=== PATIENT | male | born 1995 | race Caucasian/White ===

== ENCOUNTER 2018-07-19 16:33 | Emergency (ER) | payer BC ==
[~2018-07-19] VITALS: Ht 185.4 cm; Wt 81.6 kg
[2018-07-19] MEDS ORDERED: LORAZEPAM 1 MG TABLET ONE (17:18)
--- NOTE | 2018-07-19 17:23 | NUR ---
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
[2018-07-19 17:24] VITALS: BP 138/87
[2018-07-19] MEDS ORDERED: LORAZEPAM 1 MG TABLET PO ONE (17:30)
--- NOTE | 2018-07-19 17:40 | NUR ---
For discharge-ACI given states understanding Home ambulatory with parent
== END 2018-07-19 17:40 | disposition home or self-care (01) ==
LOC: ER 16:35
DX: F41.9 Anxiety disorder, unspecified (principal); F45.8 Other somatoform disorders; R45.851 Suicidal ideations; R45.850 Homicidal ideations
CPT/HCPCS: 99284; A4606; Z7610